=== PATIENT | female | born 2000 | race African-American/Black ===

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

== ENCOUNTER 2024-11-22 07:47 | Emergency (ER) | payer MEDICAID, OTHER ==
[~2024-11-22] VITALS: Ht 165.1 cm; Wt 78.0 kg
[~2024-11-22 07:47] MED LIST: IBUP-2029 MT
[2024-11-22 07:59] VITALS: O2SAT 96
[2024-11-22] MEDS: ACETAMINOPHEN 325MG TABLET PO ONE (08:39)
[2024-11-22] MEDS: KETOROLAC 15MG/ML VIAL IM ONE (08:39)
[2024-11-22 12:04] VITALS: BP 131/82; PULSE 104; RESP 18; TEMP 36.7; O2SAT 96
== END 2024-11-22 12:04 | disposition home or self-care (01) ==
LOC: ER 07:47
DX: S82.62XA Displaced fracture of lateral malleolus of left fibula, initial encounter for closed fracture (principal); S82.892A Other fracture of left lower leg, initial encounter for closed fracture; J45.909 Unspecified asthma, uncomplicated; X50.1XXA Overexertion from prolonged static or awkward postures, initial encounter; Y93.01 Activity, walking, marching and hiking; Y92.89 Other specified places as the place of occurrence of the external cause; Y99.8 Other external cause status
CPT/HCPCS: 81025; 73610; 29515; 96372; 99283; J1885; Z7610